=== PATIENT | male | born 1990 | race Caucasian/White ===

== ENCOUNTER 2019-09-22 11:24 | Emergency (ER) | payer OTHER ==
[~2019-09-22] VITALS: Ht 188 cm; Wt 106.6 kg
[2019-09-22 11:51] LABS: HEMATOCRIT 44.7 % (42.0-52.0); HEMOGLOBIN 15.4 gm/dL (14.0-18.0); MCH 28.2 pg (26.0-34.0); MCHC 34.5 g/dL (28.0-37.0); MCV 81.8 fL (80.0-100.0); MPV 8.8 fl. (7.2-11.1); NUCLEATED RBCS 0 /100WBC; PLATELET COUNT* 152 thou/uL (150-400); RBC 5.46 mil/uL (4.50-6.00); WBC 9.9 thou/uL (4.0-11.0)
[2019-09-22 11:57] LABS: INFLUENZA A ANTIGEN Negative (Negative); INFLUENZA B ANTIGEN Negative (Negative)
[2019-09-22 12:10] LABS: CALCIUM 8.9 mg/dL (8.5-10.1); CREATININE 1.1 mg/dL (0.6-1.3); POTASSIUM 3.7 mmol/L (3.5-5.1)
[2019-09-22 12:14] LABS: ALBUMIN 3.9 g/dL (3.4-5.0); TOTAL PROTEIN 7.2 g/dL (6.4-8.2)
[2019-09-22 12:39] LABS: ABSOLUTE EOSINOPHILS 0.2 thou/uL (0.0-0.7); ABSOLUTE LYMPHOCYTES 0.2 thou/uL (0.8-5.3); ABSOLUTE MONOCYTES 0.4 thou/uL (0.0-1.2); ABSOLUTE NEUTROPHILS 9.1 thou/uL (1.6-8.1); PLATELET ESTIMATE ADEQUATE; PROMYELOCYTES 1 %
[2019-09-22 13:39] LABS: URINE BLOOD NEGATIVE (Negative); URINE CLARITY CLEAR; URINE COLOR BROWN; URINE GLUCOSE-RANDOM NEGATIVE (Negative); URINE KETONES 1+ (Negative); URINE LEUKOCYTES-REFLEX NEGATIVE (Negative); URINE NITRITE-REFLEX NEGATIVE (Negative); URINE PROTEIN NEGATIVE (Negative); URINE SPECIFIC GRAVITY >= 1.030 (1.005-1.030)
[2019-09-22 13:41] LABS: URINE BILIRUBIN 3+ (Negative)
[2019-09-22 13:42] LABS: ICTOTEST (BILI CONFIRMATORY) Positive (Negative)
[2019-09-22 16:00] VITALS: BP 101/63
== END 2019-09-22 16:00 | disposition short-term general hospital (02) ==
LOC: M.ERS 11:24
PROVIDERS: Family Medicine
DX: B34.9 Viral infection, unspecified (principal); E80.6 Other disorders of bilirubin metabolism; R11.2 Nausea with vomiting, unspecified